=== PATIENT | female | born 1980 | race Caucasian/White ===

== ENCOUNTER 2021-12-16 20:33 | Observation (INO) | payer OTHER ==
[~2021-12-16] VITALS: Ht 152.4 cm; Wt 83.9 kg
[2021-12-16] MEDS ORDERED: ACETAMINOPHEN 325 MG TAB PO SCH (21:40)
[2021-12-16] MEDS ORDERED: PRETAB PO (21:41)
[2021-12-16] MEDS ORDERED: ASPI-1822 PO (21:41)
[2021-12-16] MEDS ORDERED: ACETAMINOPHEN 325 MG TAB ONE (21:42)
[2021-12-16 22:33] VITALS: BP 135/81
== END 2021-12-16 22:00 | disposition home or self-care (01) ==
LOC: MLD 20:33
PROVIDERS: ADMIT Obstetrics & Gynecology; ATTEND Obstetrics & Gynecology
DX: O26.893 Other specified pregnancy related conditions, third trimester (principal); R10.30 Lower abdominal pain, unspecified; Z3A.36 36 weeks gestation of pregnancy
CPT/HCPCS: G0378